=== PATIENT | male | born 1990 | race Caucasian/White ===

== ENCOUNTER 2020-05-13 18:01 | Inpatient (IN) | payer OTHER ==
[2020-05-13] VITALS (13 sets, daily range): BP systolic 128–165; BP diastolic 56–105
[~2020-05-13 18:01] MED LIST: KETOROLAC 30 MG/ML 1ML VIAL IV SCH
[2020-05-13] MEDS ORDERED: KETOROLAC 30 MG/ML 1ML VIAL IV ONE ×2 (18:15→23:00)
[2020-05-13 18:33] LABS: BASO % 0.6 % (0.0-1.0); EOS # 0.1 10^3/uL (0.0-0.5); EOS % 1.7 % (0.0-3.0); HEMATOCRIT 40.3 % (42.0-52.0); HEMOGLOBIN 13.1 g/dl (13.5-17.5); LYMPH # 2.1 10^3/uL (1.5-5.0); LYMPH % 29.6 % (24.0-44.0); MEAN CORPUSCULAR HEMOGLOBIN 30.8 pg (27.0-33.0); MEAN CORPUSCULAR HGB CONC 32.5 g/dl (32.0-36.5); MEAN CORPUSCULAR VOLUME 94.6 fl (80.0-96.0); MONO # 0.5 10^3/uL (0.0-0.8); MONO % 7.6 % (0.0-5.0); NEUTROPHILS # 4.2 10^3/uL (1.5-8.5); NEUTROPHILS % 60.2 % (36.0-66.0); PLATELET COUNT, AUTOMATED 235 10^3/uL (150-450); RED BLOOD COUNT 4.26 10^6/uL (4.30-6.10)
--- NOTE | 2020-05-13 18:45 | REPVR ---
PROCEDURE INFORMATION: Exam: XR Chest, 1 View Exam date and time: 05/13/2020 6:38 PM Age: 30 years old Clinical indication: Chest pain; Type not specified; Additional info: Cp TECHNIQUE: Imaging protocol: XR of the chest Views: 1 view. COMPARISON: No relevant prior studies available. FINDINGS: Lungs: Clear right lung. There is complete collapse of the left lung. Pleural space: No pleural effusion. Heart/Mediastinum: Large left pneumothorax with shift of the cardiomediastinal structures to the right. Normal sized heart. Bones/joints: No acute bone or joint abnormality. IMPRESSION: Left tension pneumothorax. Electronically signed by: Demario Haas On 05/13/2020 18:46:18 PM
[2020-05-13] MEDS ORDERED: flumazeniL 0.5 MG/5 ML VIAL As Ordered ONE (18:59)
[2020-05-13] MEDS ORDERED: MIDAZOLAM INJ 2MG/2ML VIAL (J2250 PER 1MG) As Ordered ONE ×2 (19:00→19:28)
[2020-05-13] MEDS ORDERED: LIDOCAINE 1% MDV 20ML VIAL As Ordered ONE (19:00)
[2020-05-13] MEDS ORDERED: KCL 20MEQ IN D5/NS 1000ML 1,000 ML IV SCH (19:09)
[2020-05-13 19:14] LABS: ALBUMIN 4.3 GM/DL (3.2-5.2); ALT/SGPT 58 U/L (12-78); BILIRUBIN,TOTAL 0.5 MG/DL (0.2-1.0); BLOOD UREA NITROGEN 13 MG/DL (7-18); CALCIUM LEVEL 9.7 MG/DL (8.5-10.1); CARBON DIOXIDE LEVEL 32 MEQ/L (21-32); CHLORIDE LEVEL 106 MEQ/L (98-107); CK-MB VALUE MASS 2.9 NG/ML (<3.6); CPK CREATINE PHOSPHOKINASE 3255 U/L (39-308); CREATININE FOR GFR 0.84 MG/DL (0.70-1.30); GLOMERULAR FILTRATION RATE > 60.0 (>60); GLUCOSE, FASTING 100 MG/DL (70-100); MB/CK RELATIVE INDEX 0.09 (< OR =4); POTASSIUM SERUM 4.8 MEQ/L (3.5-5.1); SODIUM LEVEL 138 MEQ/L (136-145); TOTAL PROTEIN 7.9 GM/DL (6.4-8.2); TROPONIN I < 0.02 NG/ML (< 0.10)
[2020-05-13] MEDS ORDERED: BISACODYL 10 MG SUPP PR PRN (19:15)
[2020-05-13] MEDS ORDERED: LEVALBUTEROL 1.25 MG/0.5 ML CONCENTRATE NEB NEB PRN (19:15)
[2020-05-13] MEDS ORDERED: ACETAMINOPHEN TAB 650MG DOSE (2X325MG) PO PRN (19:15)
[2020-05-13 19:26] LABS: ERYTHROCYTE SEDIMENTATION RATE 4 mm/hr (0-15)
[2020-05-13] MEDS ORDERED: KETOROLAC 30 MG/ML 1ML VIAL As Ordered ONE (19:47)
--- NOTE | 2020-05-13 19:58 | REPVR ---
PROCEDURE INFORMATION: Exam: XR Chest, 1 View Exam date and time: 05/13/2020 7:51 PM Age: 30 years old Clinical indication: Device placement; Chest tube; Additional info: Post chest tube TECHNIQUE: Imaging protocol: XR of the chest Views: 1 view. COMPARISON: CR Chest, 1 view 05/13/2020 6:33 PM FINDINGS: Tubes, catheters and devices: A left-sided chest tube has been placed since the previous examination. The tip of the tube is superimposed over the medial aspect of the left upper thorax. Lungs: There are linear markings scattered about the left lung consistent with atelectasis. The right lung is clear. Pleural space: There is been complete resolution of the left pneumothorax compared to the previous study. No pleural effusion. Heart/Mediastinum: The cardiomediastinal silhouette and pulmonary vasculature are within normal limits. Bones/joints: No acute bone or joint abnormality. IMPRESSION: 1. Resolution of left pneumothorax, status post placement of left chest tube. 2. Minimal linear markings within the left lung consistent with atelectasis . Electronically signed by: Demario Haas On 05/13/2020 19:58:59 PM
[2020-05-13] MEDS: LEVALBUTEROL 1.25 MG/0.5 ML CONCENTRATE NEB NEB SCH (21:10)
[2020-05-13] MEDS: DOCUSATE SODIUM 100 MG CAP PO SCH (22:05)
[2020-05-13] MEDS: PERCOCET 5MG/325MG TAB PO PRN (22:06)
[2020-05-13] MEDS: HEPARIN SOD (PORCINE) 5000UNITS/ML 1ML VIAL/SYRINGE SC SCH (22:06)
[2020-05-13] MEDS ORDERED: LIDOCAINE 1% MDV 20ML VIAL SC ONE (23:00)
[2020-05-13] MEDS ORDERED: MIDAZOLAM INJ 2MG/2ML VIAL (J2250 PER 1MG) IV SCH (23:00)
[2020-05-14] VITALS: BP 127/63
[2020-05-14] MEDS: KETOROLAC 30 MG/ML 1ML VIAL IV SCH ×5 (00:02→23:35)
[2020-05-14] MEDS: LEVALBUTEROL 1.25 MG/0.5 ML CONCENTRATE NEB NEB SCH ×4 (02:00→19:35)
[2020-05-14] MEDS: PERCOCET 5MG/325MG TAB PO PRN ×2 (02:57→08:23)
[2020-05-14 04:00] VITALS: BP 123/75
[2020-05-14 05:57] LABS: BASO % 0.3 % (0.0-1.0); EOS # 0.1 10^3/uL (0.0-0.5); EOS % 1.6 % (0.0-3.0); HEMATOCRIT 38.4 % (42.0-52.0); HEMOGLOBIN 12.3 g/dl (13.5-17.5); LYMPH # 1.9 10^3/uL (1.5-5.0); LYMPH % 25.2 % (24.0-44.0); MEAN CORPUSCULAR HEMOGLOBIN 30.6 pg (27.0-33.0); MEAN CORPUSCULAR VOLUME 95.5 fl (80.0-96.0); MONO # 0.7 10^3/uL (0.0-0.8); NEUTROPHILS # 4.7 10^3/uL (1.5-8.5); NEUTROPHILS % 63.6 % (36.0-66.0); PLATELET COUNT, AUTOMATED 204 10^3/uL (150-450); RED BLOOD COUNT 4.02 10^6/uL (4.30-6.10); WHITE BLOOD COUNT 7.3 10^3/uL (4.0-10.0)
[2020-05-14 06:26] LABS: BLOOD UREA NITROGEN 17 MG/DL (7-18); CALCIUM LEVEL 8.4 MG/DL (8.5-10.1); CARBON DIOXIDE LEVEL 29 MEQ/L (21-32); CHLORIDE LEVEL 108 MEQ/L (98-107); CREATININE FOR GFR 0.73 MG/DL (0.70-1.30); GLOMERULAR FILTRATION RATE > 60.0 (>60); GLUCOSE, FASTING 98 MG/DL (70-100); POTASSIUM SERUM 4.2 MEQ/L (3.5-5.1); SODIUM LEVEL 141 MEQ/L (136-145)
[2020-05-14 07:58] VITALS: BP 118/75
[2020-05-14] MEDS: DOCUSATE SODIUM 100 MG CAP PO SCH ×2 (08:17→20:25)
[2020-05-14] MEDS: HEPARIN SOD (PORCINE) 5000UNITS/ML 1ML VIAL/SYRINGE SC SCH ×2 (08:18→20:26)
[2020-05-14] MEDS: PANTOPRAZOLE 40MG TAB (PROTONIX) PO SCH (08:18)
[2020-05-14] MEDS: MOM 30ML SUSPENSION UDC PO SCH (08:19)
--- NOTE | 2020-05-14 09:32 | REPVR ---
PROCEDURE INFORMATION: Exam: CT Chest Without Contrast Exam date and time: 05/14/2020 8:56 AM Age: 30 years old Clinical indication: Condition or disease; Lung condition and disease; Pneumothorax; Spontaneous; Additional info: Left sided pneumothorax TECHNIQUE: Imaging protocol: Computed tomography of the chest without contrast. 3D rendering (Not supervised by radiologist): MIP and/or 3D reconstructed images were created by the technologist. Radiation optimization: All CT scans at this facility use at least one of these dose optimization techniques: automated exposure control; mA and/or kV adjustment per patient size (includes targeted exams where dose is matched to clinical indication); or iterative reconstruction. COMPARISON: CR Chest, 2 view PA, Lat 05/14/2020 7:20 AM FINDINGS: Tubes, catheters and devices: Left chest tube place with trace residual pneumothorax. Lungs: Atelectasis or scarring at the left base. Evidence of wedge resection along the medial right apex. Centrilobular and paraseptal emphysema. 6 mm pulmonary nodule in the right lower lobe . Pleural space: Unremarkable. No pneumothorax. No pleural effusion. Heart: Unremarkable. No cardiomegaly. No pericardial effusion. Aorta: Unremarkable. No aortic aneurysm. Lymph nodes: Unremarkable. No enlarged lymph nodes. Bones/joints: Unremarkable. No acute fracture. Soft tissues: Gas the left anterolateral chest wall. IMPRESSION: Left chest tube place with trace residual pneumothorax. Electronically signed by: Kurt Hernandez On 05/14/2020 09:32:50 AM
--- NOTE | 2020-05-14 09:33 | REPVR ---
PROCEDURE INFORMATION: Exam: XR Chest, 2 Views Exam date and time: 05/14/2020 6:00 AM Age: 30 years old Clinical indication: Dyspnea; Additional info: Pneumothorax TECHNIQUE: Imaging protocol: XR of the chest Views: 2 views. COMPARISON: CR PORTABLE CHEST X-RAY 05/13/2020 7:42 PM FINDINGS: Lungs: Unremarkable. No consolidation. Pleural space: Left chest tube in place with trace residual pneumothorax. Heart/Mediastinum: Unremarkable. No cardiomegaly. Bones/joints: Unremarkable. Soft tissues: Gas in the left lateral chest wall. IMPRESSION: Left chest tube in place with trace residual pneumothorax. Electronically signed by: Kurt Hernandez On 05/14/2020 09:34:04 AM
[2020-05-14] MEDS: NORCO, ANEXSIA 5/325MG TABLET (HYDROcodone/ACETAMINOPHEN) PO PRN ×3 (10:20→20:26)
--- NOTE | 2020-05-14 10:25 | REPVR ---
PROCEDURE INFORMATION: Exam: XR Chest, 1 View Exam date and time: 05/14/2020 10:04 AM Age: 30 years old Clinical indication: Device placement; Additional info: Tube reposition sp pneumothorax TECHNIQUE: Imaging protocol: XR of the chest Views: 1 view. COMPARISON: 1. CT Chest without contrast 05/14/2020 8:40 AM 2. CR - Chest, 2 view PA, Lat 05/14/2020 7:20:36 AM FINDINGS: Tubes, catheters and devices: Left-sided chest tube remains in place. Lungs: Lungs are well aerated. No consolidation. Pleural space: Small residual left apical pneumothorax which appears unchanged. No significant pleural effusions. Heart/Mediastinum: Cardiac size is normal and mediastinal contour stable. Bones/joints: Bones are stable. Soft tissues: There is persistent left chest wall subcutaneous emphysema. IMPRESSION: Stable small residual left apical pneumothorax with an indwelling chest tube. Electronically signed by: Jaime Vigil On 05/14/2020 10:25:25 AM
[2020-05-14 12:00] VITALS: BP 118/64
[2020-05-14 15:52] VITALS: BP 128/74
[2020-05-14 20:00] VITALS: BP 130/68
[2020-05-15] VITALS (7 sets, daily range): BP systolic 98–141; BP diastolic 55–84
[2020-05-15] MEDS: LEVALBUTEROL 1.25 MG/0.5 ML CONCENTRATE NEB NEB SCH ×4 (01:41→20:09)
[2020-05-15] MEDS: KETOROLAC 30 MG/ML 1ML VIAL IV SCH ×3 (05:12→17:06)
[2020-05-15 05:14] LABS: BASO % 0.3 % (0.0-1.0); EOS # 0.1 10^3/uL (0.0-0.5); EOS % 2.3 % (0.0-3.0); HEMATOCRIT 37.8 % (42.0-52.0); HEMOGLOBIN 12.1 g/dl (13.5-17.5); LYMPH # 2.3 10^3/uL (1.5-5.0); LYMPH % 37.3 % (24.0-44.0); MEAN CORPUSCULAR HEMOGLOBIN 30.5 pg (27.0-33.0); MEAN CORPUSCULAR VOLUME 95.2 fl (80.0-96.0); MONO # 0.5 10^3/uL (0.0-0.8); MONO % 8.2 % (0.0-5.0); NEUTROPHILS # 3.2 10^3/uL (1.5-8.5); NEUTROPHILS % 51.7 % (36.0-66.0); PLATELET COUNT, AUTOMATED 173 10^3/uL (150-450); RED BLOOD COUNT 3.97 10^6/uL (4.30-6.10); WHITE BLOOD COUNT 6.2 10^3/uL (4.0-10.0)
[2020-05-15 06:27] LABS: BLOOD UREA NITROGEN 12 MG/DL (7-18); CALCIUM LEVEL 8.8 MG/DL (8.5-10.1); CARBON DIOXIDE LEVEL 29 MEQ/L (21-32); CHLORIDE LEVEL 106 MEQ/L (98-107); CREATININE FOR GFR 0.72 MG/DL (0.70-1.30); GLOMERULAR FILTRATION RATE > 60.0 (>60); GLUCOSE, FASTING 92 MG/DL (70-100); POTASSIUM SERUM 4.1 MEQ/L (3.5-5.1); SODIUM LEVEL 141 MEQ/L (136-145)
[2020-05-15] MEDS: MOM 30ML SUSPENSION UDC PO SCH (08:19)
[2020-05-15] MEDS: PANTOPRAZOLE 40MG TAB (PROTONIX) PO SCH (08:19)
[2020-05-15] MEDS: DOCUSATE SODIUM 100 MG CAP PO SCH ×2 (08:19→20:37)
[2020-05-15] MEDS: NORCO, ANEXSIA 5/325MG TABLET (HYDROcodone/ACETAMINOPHEN) PO PRN ×2 (08:21→17:05)
[2020-05-15] MEDS ORDERED: SLF 3 ML SYR IV PRN (10:45)
[2020-05-15] MEDS: HEPARIN SOD (PORCINE) 5000UNITS/ML 1ML VIAL/SYRINGE SC SCH ×2 (11:06→20:37)
[2020-05-15] MEDS: SLF 3 ML SYR IV SCH ×2 (11:07→22:47)
[2020-05-16] VITALS: BP 137/76
[2020-05-16] MEDS: KETOROLAC 30 MG/ML 1ML VIAL IV SCH ×4 (00:28→18:05)
[2020-05-16] MEDS: NORCO, ANEXSIA 5/325MG TABLET (HYDROcodone/ACETAMINOPHEN) PO PRN ×3 (00:29→11:30)
[2020-05-16] MEDS: LEVALBUTEROL 1.25 MG/0.5 ML CONCENTRATE NEB NEB SCH ×4 (01:39→19:46)
[2020-05-16 04:00] VITALS: BP 134/77
[2020-05-16] MEDS: SLF 3 ML SYR IV SCH ×3 (06:06→21:11)
[2020-05-16 06:18] LABS: BASO % 0.3 % (0.0-1.0); EOS # 0.2 10^3/uL (0.0-0.5); HEMATOCRIT 37.8 % (42.0-52.0); LYMPH # 1.8 10^3/uL (1.5-5.0); LYMPH % 29.8 % (24.0-44.0); MEAN CORPUSCULAR HEMOGLOBIN 30.8 pg (27.0-33.0); MEAN CORPUSCULAR HGB CONC 31.7 g/dl (32.0-36.5); MEAN CORPUSCULAR VOLUME 96.9 fl (80.0-96.0); MONO # 0.6 10^3/uL (0.0-0.8); NEUTROPHILS # 3.4 10^3/uL (1.5-8.5); NEUTROPHILS % 56.6 % (36.0-66.0); PLATELET COUNT, AUTOMATED 182 10^3/uL (150-450); WHITE BLOOD COUNT 6.1 10^3/uL (4.0-10.0)
[2020-05-16 06:34] LABS: BLOOD UREA NITROGEN 12 MG/DL (7-18); CALCIUM LEVEL 8.6 MG/DL (8.5-10.1); CARBON DIOXIDE LEVEL 31 MEQ/L (21-32); CHLORIDE LEVEL 106 MEQ/L (98-107); CREATININE FOR GFR 0.77 MG/DL (0.70-1.30); GLOMERULAR FILTRATION RATE > 60.0 (>60); GLUCOSE, FASTING 85 MG/DL (70-100); POTASSIUM SERUM 4.3 MEQ/L (3.5-5.1); SODIUM LEVEL 143 MEQ/L (136-145)
[2020-05-16] MEDS: HEPARIN SOD (PORCINE) 5000UNITS/ML 1ML VIAL/SYRINGE SC SCH ×2 (07:57→21:11)
[2020-05-16] MEDS: MOM 30ML SUSPENSION UDC PO SCH (07:57)
[2020-05-16] MEDS: DOCUSATE SODIUM 100 MG CAP PO SCH ×2 (07:57→21:09)
[2020-05-16] MEDS: PANTOPRAZOLE 40MG TAB (PROTONIX) PO SCH (07:57)
[2020-05-16 08:00] VITALS: BP 113/60
[2020-05-16 12:00] VITALS: BP 135/72
[2020-05-16] MEDS: PERCOCET 5MG/325MG TAB PO PRN ×2 (15:48→21:10)
[2020-05-16 16:00] VITALS: BP 129/77
[2020-05-16 20:00] VITALS: BP 136/72
[2020-05-17] VITALS: BP 120/72
[2020-05-17] MEDS: KETOROLAC 30 MG/ML 1ML VIAL IV SCH ×4 (00:53→17:18)
[2020-05-17] MEDS: LEVALBUTEROL 1.25 MG/0.5 ML CONCENTRATE NEB NEB SCH ×4 (01:50→19:46)
[2020-05-17 04:00] VITALS: BP 116/63
[2020-05-17 06:20] LABS: BASO % 0.4 % (0.0-1.0); EOS # 0.1 10^3/uL (0.0-0.5); EOS % 2.1 % (0.0-3.0); HEMATOCRIT 35.6 % (42.0-52.0); HEMOGLOBIN 11.4 g/dl (13.5-17.5); LYMPH # 1.7 10^3/uL (1.5-5.0); LYMPH % 32.5 % (24.0-44.0); MEAN CORPUSCULAR HEMOGLOBIN 30.9 pg (27.0-33.0); MEAN CORPUSCULAR VOLUME 96.5 fl (80.0-96.0); MONO # 0.5 10^3/uL (0.0-0.8); MONO % 8.4 % (0.0-5.0); NEUTROPHILS % 56.4 % (36.0-66.0); PLATELET COUNT, AUTOMATED 179 10^3/uL (150-450); RED BLOOD COUNT 3.69 10^6/uL (4.30-6.10); WHITE BLOOD COUNT 5.4 10^3/uL (4.0-10.0)
[2020-05-17] MEDS: PERCOCET 5MG/325MG TAB PO PRN ×3 (06:26→20:47)
[2020-05-17] MEDS: SLF 3 ML SYR IV SCH ×3 (06:27→21:17)
[2020-05-17 06:44] LABS: BLOOD UREA NITROGEN 9 MG/DL (7-18); CALCIUM LEVEL 8.8 MG/DL (8.5-10.1); CARBON DIOXIDE LEVEL 30 MEQ/L (21-32); CHLORIDE LEVEL 105 MEQ/L (98-107); CREATININE FOR GFR 0.79 MG/DL (0.70-1.30); GLOMERULAR FILTRATION RATE > 60.0 (>60); GLUCOSE, FASTING 96 MG/DL (70-100); POTASSIUM SERUM 4.3 MEQ/L (3.5-5.1); SODIUM LEVEL 141 MEQ/L (136-145)
[2020-05-17] MEDS: DOCUSATE SODIUM 100 MG CAP PO SCH ×2 (09:58→20:46)
[2020-05-17] MEDS: PANTOPRAZOLE 40MG TAB (PROTONIX) PO SCH (09:58)
[2020-05-17] MEDS: HEPARIN SOD (PORCINE) 5000UNITS/ML 1ML VIAL/SYRINGE SC SCH ×2 (09:59→20:47)
[2020-05-17] MEDS: MOM 30ML SUSPENSION UDC PO SCH (09:59)
[2020-05-17 12:00] VITALS: BP_SYST 140; BP_DIAS 4; BP_DIAS 74
[2020-05-17 16:00] VITALS: BP 156/82
[2020-05-17 20:00] VITALS: BP 132/70
[2020-05-18] VITALS: BP 129/86
[2020-05-18] MEDS: KETOROLAC 30 MG/ML 1ML VIAL IV SCH ×4 (00:58→17:20)
[2020-05-18] MEDS: LEVALBUTEROL 1.25 MG/0.5 ML CONCENTRATE NEB NEB SCH ×4 (01:36→19:30)
[2020-05-18 04:00] VITALS: BP 119/59
[2020-05-18] MEDS: SLF 3 ML SYR IV SCH ×3 (06:12→20:50)
[2020-05-18] MEDS ORDERED: STERILE TALC POWDER 3GM VIAL As Ordered ONE (07:19)
[2020-05-18] MEDS ORDERED: BUPIVACAINE HCL 0.5% 10ML VIAL As Ordered ONE (07:19)
[2020-05-18] MEDS ORDERED: CETACAINE SPRAY 5GM As Ordered ONE (07:19)
[2020-05-18] MEDS ORDERED: BUPIVACAINE LIPOSOME/PF 1.3% 20ML VIAL (13.3MG/ML)(EXPAREL)(C9290 PER1MG) As Ordered ONE (07:20)
[2020-05-18] MEDS ORDERED: TALCAIR POWDER BLOWER (CAN ONLY BE USED WITH 3GM TALC VIAL) XX ONE (07:21)
[2020-05-18] MEDS ORDERED: LIDOCAINE 2% 100MG/5ML SDV (FOR ANES.) As Ordered ONE (07:37)
[2020-05-18] MEDS ORDERED: ROCURONIUM BROMIDE 50 MG/5 ML VIAL As Ordered ONE ×2 (07:37→09:26)
[2020-05-18] MEDS ORDERED: MIDAZOLAM INJ 2MG/2ML VIAL (J2250 PER 1MG) As Ordered ONE ×2 (07:37→07:38)
[2020-05-18] MEDS ORDERED: dexameTHASONE 4 MG/ML 1ML VIAL (J1100 PER 1MG) As Ordered ONE (07:37)
[2020-05-18] MEDS ORDERED: fentaNYL 250 MCG/5 ML INJECTION (J3010) As Ordered ONE (07:37)
[2020-05-18] MEDS ORDERED: propofoL 200 MG/20 ML VIAL As Ordered ONE ×2 (07:37→07:40)
[2020-05-18] MEDS ORDERED: ONDANSETRON 4MG/2ML VIAL As Ordered ONE (07:37)
[2020-05-18] MEDS ORDERED: fentaNYL 100 MCG/2 ML INJECTION (J3010) As Ordered ONE ×2 (07:38→11:19)
[2020-05-18 08:00] VITALS: BP 123/64
[2020-05-18] MEDS: MIDAZOLAM INJ 2MG/2ML VIAL (J2250 PER 1MG) IV SCH ×2 (08:07→08:09)
[2020-05-18] MEDS: fentaNYL 100 MCG/2 ML INJECTION (J3010) IV SCH ×2 (08:07→08:24)
[2020-05-18] MEDS ORDERED: MUPIROCIN 2% OINT 22 GM TUBE As Ordered ONE (08:39)
[2020-05-18] MEDS ORDERED: ceFAZolin 1GM VIAL (J0690 PER 500MG) As Ordered ONE (08:40)
[2020-05-18] MEDS ORDERED: ONDANSETRON 4MG/2ML VIAL IV PRN ×2 (09:00→11:30)
[2020-05-18] MEDS ORDERED: NALOXONE INJ 0.4MG/1ML VIAL (J2310 PER 1MG) IV PRN (09:00)
[2020-05-18] MEDS ORDERED: EPIDURAL/PCA KEYS XX PRN (09:00)
[2020-05-18] MEDS ORDERED: METOCLOPRAMIDE INJ 10MG/2ML VIAL (J2765 PER 1) IV PRN (09:00)
[2020-05-18] MEDS ORDERED: WALLBOXKEY XX PRN (09:00)
[2020-05-18] MEDS ORDERED: BUPIVACAINE HCL 0.25% 30ML VIAL As Ordered ONE (09:11)
[2020-05-18] MEDS ORDERED: GLYCOPYRROLATE INJ 0.2 MG/ML 2 ML VIAL As Ordered ONE (09:14)
[2020-05-18] MEDS ORDERED: ACETAMINOPHEN 1000MG 100ML IV BTL (OFIRMEV) (J0131 PER 10MG) As Ordered ONE (09:33)
[2020-05-18] MEDS ORDERED: SUGAMMADEX SODIUM 500 MG/5 ML VIAL (BRIDION) As Ordered ONE (09:33)
[2020-05-18] MEDS ORDERED: PHENYLephrine HCL 500 MCG/5 ML (100MCG/ML) SYRINGE (J2370) As Ordered ONE (09:39)
[2020-05-18] MEDS ORDERED: ePHEDrine SULFATE 25 MG/5 ML(5MG/ML) SYRINGE As Ordered ONE (09:39)
[2020-05-18] MEDS ORDERED: FENTANYL 2MCG/ML BUPIVACAINE 0.0625% NACL 250ML IV BAG As Ordered ONE (10:39)
[2020-05-18] MEDS: FENTANYL/BUPIVACAINE/NACL BAG 250 ML EPIDURAL SCH (11:04)
[2020-05-18] MEDS ORDERED: KCL 20MEQ IN D5/0.9%NACL 1000 ML As Ordered ONE (11:11)
[2020-05-18] MEDS: KCL 20MEQ IN D5/NS 1000ML 1,000 ML IV SCH ×2 (11:11→23:58)
[2020-05-18 11:15] LABS: ABG PARTIAL PRESSURE CO2 57.2 mmHg (35.0-45.0); ABG pH (ARTERIAL) 7.338 UNITS (7.350-7.450)
[2020-05-18 11:16] LABS: ABG BASE EXCESS 2.9 (-2.0-2.0); ABG O2 SATURATION 98.5 % (95.0-99.0); ABG PARTIAL PRESSURE O2 134.2 mmHg (75.0-100.0); ABG STANDARD HCO3 27.1 MEQ/L (22.0-26.0); ABG TOTAL CO2 31.8 MEQ/L (22.0-29.0)
[2020-05-18] MEDS: fentaNYL 100 MCG/2 ML INJECTION (J3010) IV PRN ×2 (11:19→11:28)
[2020-05-18 11:25] LABS: BASO % 0.1 % (0.0-1.0); EOS # 0.1 10^3/uL (0.0-0.5); EOS % 0.7 % (0.0-3.0); HEMATOCRIT 39.6 % (42.0-52.0); HEMOGLOBIN 12.7 g/dl (13.5-17.5); LYMPH # 0.7 10^3/uL (1.5-5.0); LYMPH % 8.9 % (24.0-44.0); MEAN CORPUSCULAR HEMOGLOBIN 30.7 pg (27.0-33.0); MEAN CORPUSCULAR HGB CONC 32.1 g/dl (32.0-36.5); MEAN CORPUSCULAR VOLUME 95.7 fl (80.0-96.0); MONO # 0.2 10^3/uL (0.0-0.8); MONO % 2.9 % (0.0-5.0); NEUTROPHILS # 6.6 10^3/uL (1.5-8.5); PLATELET COUNT, AUTOMATED 198 10^3/uL (150-450); RED BLOOD COUNT 4.14 10^6/uL (4.30-6.10); WHITE BLOOD COUNT 7.6 10^3/uL (4.0-10.0)
[2020-05-18] MEDS ORDERED: LR 1,000 ML IV SCH (11:30)
[2020-05-18] MEDS ORDERED: PERCOCET 5MG/325MG TAB PO PRN (11:30)
[2020-05-18] MEDS ORDERED: KETOROLAC 30 MG/ML 1ML VIAL As Ordered ONE (12:03)
[2020-05-18] MEDS ORDERED: PERCOCET 5MG/325MG TAB As Ordered ONE (12:03)
[2020-05-18 12:06] LABS: BLOOD UREA NITROGEN 11 MG/DL (7-18); CALCIUM LEVEL 8.8 MG/DL (8.5-10.1); CARBON DIOXIDE LEVEL 29 MEQ/L (21-32); CHLORIDE LEVEL 109 MEQ/L (98-107); GLOMERULAR FILTRATION RATE > 60.0 (>60); GLUCOSE, FASTING 101 MG/DL (70-100); POTASSIUM SERUM 4.9 MEQ/L (3.5-5.1); SODIUM LEVEL 142 MEQ/L (136-145)
[2020-05-18 16:00] VITALS: BP 102/54
[2020-05-18] MEDS: DOCUSATE SODIUM 100 MG CAP PO SCH ×2 (16:15→20:49)
[2020-05-18] MEDS: MOM 30ML SUSPENSION UDC PO SCH (16:15)
[2020-05-18] MEDS: PANTOPRAZOLE 40MG TAB (PROTONIX) PO SCH (16:16)
[2020-05-18] MEDS: HEPARIN SOD (PORCINE) 5000UNITS/ML 1ML VIAL/SYRINGE SC SCH ×2 (16:16→20:49)
[2020-05-18] MEDS: diphenhydrAMINE 50MG/ML VIAL (J1200) IV PRN (17:20)
[2020-05-18 20:00] VITALS: BP 140/62
[2020-05-19] VITALS: BP 120/68
[2020-05-19] MEDS: LEVALBUTEROL 1.25 MG/0.5 ML CONCENTRATE NEB NEB SCH ×4 (00:05→20:16)
[2020-05-19] MEDS: KCL 20MEQ IN D5/NS 1000ML 1,000 ML IV SCH (00:22)
[2020-05-19 04:00] VITALS: BP 120/56
[2020-05-19] MEDS: diphenhydrAMINE 50MG/ML VIAL (J1200) IV PRN (04:23)
[2020-05-19 04:25] LABS: BASO % 0.2 % (0.0-1.0); EOS # 0.1 10^3/uL (0.0-0.5); EOS % 1.1 % (0.0-3.0); HEMATOCRIT 35.9 % (42.0-52.0); HEMOGLOBIN 11.8 g/dl (13.5-17.5); LYMPH # 1.8 10^3/uL (1.5-5.0); LYMPH % 17.6 % (24.0-44.0); MEAN CORPUSCULAR HEMOGLOBIN 31.2 pg (27.0-33.0); MEAN CORPUSCULAR HGB CONC 32.9 g/dl (32.0-36.5); MONO # 0.9 10^3/uL (0.0-0.8); MONO % 8.7 % (0.0-5.0); NEUTROPHILS # 7.5 10^3/uL (1.5-8.5); NEUTROPHILS % 72.1 % (36.0-66.0); PLATELET COUNT, AUTOMATED 195 10^3/uL (150-450); RED BLOOD COUNT 3.78 10^6/uL (4.30-6.10); WHITE BLOOD COUNT 10.4 10^3/uL (4.0-10.0)
[2020-05-19 04:45] LABS: BLOOD UREA NITROGEN 10 MG/DL (7-18); CALCIUM LEVEL 8.6 MG/DL (8.5-10.1); CARBON DIOXIDE LEVEL 28 MEQ/L (21-32); CHLORIDE LEVEL 107 MEQ/L (98-107); CREATININE FOR GFR 0.77 MG/DL (0.70-1.30); GLOMERULAR FILTRATION RATE > 60.0 (>60); GLUCOSE, FASTING 94 MG/DL (70-100); POTASSIUM SERUM 4.4 MEQ/L (3.5-5.1); SODIUM LEVEL 141 MEQ/L (136-145)
[2020-05-19] MEDS: SLF 3 ML SYR IV SCH ×3 (05:21→20:44)
[2020-05-19 05:52] LABS: ABG HCO3 24.1 MEQ/L (22.0-26.0); ABG PARTIAL PRESSURE CO2 41.5 mmHg (35.0-45.0); ABG PARTIAL PRESSURE O2 107.5 mmHg (75.0-100.0); ABG TOTAL CO2 25.3 MEQ/L (22.0-29.0); ABG pH (ARTERIAL) 7.381 UNITS (7.350-7.450)
[2020-05-19 05:53] LABS: ABG STANDARD HCO3 23.6 MEQ/L (22.0-26.0)
[2020-05-19 08:00] VITALS: BP 106/51
[2020-05-19] MEDS: HEPARIN SOD (PORCINE) 5000UNITS/ML 1ML VIAL/SYRINGE SC SCH ×2 (08:25→20:43)
[2020-05-19] MEDS: PANTOPRAZOLE 40MG TAB (PROTONIX) PO SCH (08:25)
[2020-05-19] MEDS: MOM 30ML SUSPENSION UDC PO SCH (08:25)
[2020-05-19] MEDS: DOCUSATE SODIUM 100 MG CAP PO SCH ×2 (08:25→20:43)
[2020-05-19] MEDS: FENTANYL/BUPIVACAINE/NACL BAG 250 ML EPIDURAL SCH (08:26)
[2020-05-19] MEDS: BUPIVACAINE/NACL BAG 250 ML EPIDURAL SCH (11:59)
[2020-05-19 12:00] VITALS: BP 110/69
[2020-05-19 16:00] VITALS: BP_SYST 127; BP_SYST 139; BP_DIAS 61; BP_DIAS 66
[2020-05-19] MEDS: PERCOCET 5MG/325MG TAB PO PRN ×2 (16:22→20:56)
[2020-05-19 20:00] VITALS: BP 134/61
[2020-05-20] VITALS (11 sets, daily range): BP systolic 95–130; BP diastolic 50–74
[2020-05-20] MEDS: LEVALBUTEROL 1.25 MG/0.5 ML CONCENTRATE NEB NEB SCH ×4 (01:41→20:00)
[2020-05-20] MEDS: PERCOCET 5MG/325MG TAB PO PRN ×2 (02:05→06:49)
[2020-05-20] MEDS: NORCO, ANEXSIA 5/325MG TABLET (HYDROcodone/ACETAMINOPHEN) PO PRN ×2 (02:11→06:50)
[2020-05-20] MEDS: SLF 3 ML SYR IV SCH ×3 (05:40→21:16)
[2020-05-20 05:58] LABS: BASO % 0.4 % (0.0-1.0); EOS # 0.1 10^3/uL (0.0-0.5); EOS % 1.6 % (0.0-3.0); HEMATOCRIT 34.6 % (42.0-52.0); HEMOGLOBIN 11.1 g/dl (13.5-17.5); LYMPH # 1.5 10^3/uL (1.5-5.0); LYMPH % 18.5 % (24.0-44.0); MEAN CORPUSCULAR HEMOGLOBIN 31.2 pg (27.0-33.0); MEAN CORPUSCULAR HGB CONC 32.1 g/dl (32.0-36.5); MEAN CORPUSCULAR VOLUME 97.2 fl (80.0-96.0); MONO % 12.2 % (0.0-5.0); NEUTROPHILS # 5.3 10^3/uL (1.5-8.5); PLATELET COUNT, AUTOMATED 178 10^3/uL (150-450); RED BLOOD COUNT 3.56 10^6/uL (4.30-6.10); WHITE BLOOD COUNT 7.9 10^3/uL (4.0-10.0)
[2020-05-20 06:21] LABS: BLOOD UREA NITROGEN 14 MG/DL (7-18); CALCIUM LEVEL 8.7 MG/DL (8.5-10.1); CARBON DIOXIDE LEVEL 32 MEQ/L (21-32); CHLORIDE LEVEL 104 MEQ/L (98-107); CREATININE FOR GFR 0.74 MG/DL (0.70-1.30); GLOMERULAR FILTRATION RATE > 60.0 (>60); GLUCOSE, FASTING 95 MG/DL (70-100); POTASSIUM SERUM 4.4 MEQ/L (3.5-5.1); SODIUM LEVEL 140 MEQ/L (136-145)
[2020-05-20] MEDS: BUPIVACAINE/NACL BAG 250 ML EPIDURAL SCH (09:25)
[2020-05-20] MEDS: MOM 30ML SUSPENSION UDC PO SCH (09:44)
[2020-05-20] MEDS: DOCUSATE SODIUM 100 MG CAP PO SCH ×2 (09:44→21:15)
[2020-05-20] MEDS: HEPARIN SOD (PORCINE) 5000UNITS/ML 1ML VIAL/SYRINGE SC SCH ×2 (09:45→21:15)
[2020-05-20] MEDS: PANTOPRAZOLE 40MG TAB (PROTONIX) PO SCH (09:49)
[2020-05-20] MEDS: KETOROLAC 30 MG/ML 1ML VIAL IV SCH ×2 (11:46→19:04)
[2020-05-20] MEDS ORDERED: fentaNYL 100 MCG/2 ML INJECTION (J3010) As Ordered ONE (12:04)
[2020-05-20] MEDS ORDERED: MIDAZOLAM INJ 2MG/2ML VIAL (J2250 PER 1MG) As Ordered ONE (12:04)
[2020-05-20] MEDS ORDERED: MORPHINE 1MG/ML IN 0.9% NACL 100ML IV BAG IV PRN (14:30)
[2020-05-20] MEDS ORDERED: EPIDURAL/PCA KEYS XX PRN (14:30)
[2020-05-20] MEDS: NS 1,000 ML IV SCH (16:26)
[2020-05-21] VITALS: BP 105/58
[2020-05-21] MEDS: KETOROLAC 30 MG/ML 1ML VIAL IV SCH ×4 (00:54→17:36)
[2020-05-21] MEDS: LEVALBUTEROL 1.25 MG/0.5 ML CONCENTRATE NEB NEB SCH ×4 (01:21→19:45)
[2020-05-21 04:00] VITALS: BP 111/62
[2020-05-21] MEDS: BUPIVACAINE/NACL BAG 250 ML EPIDURAL SCH (05:07)
[2020-05-21] MEDS: SLF 3 ML SYR IV SCH ×3 (05:34→20:38)
[2020-05-21 06:42] LABS: BASO % 0.3 % (0.0-1.0); EOS # 0.2 10^3/uL (0.0-0.5); EOS % 2.9 % (0.0-3.0); HEMATOCRIT 34.2 % (42.0-52.0); HEMOGLOBIN 11.1 g/dl (13.5-17.5); LYMPH # 1.5 10^3/uL (1.5-5.0); LYMPH % 24.3 % (24.0-44.0); MEAN CORPUSCULAR HEMOGLOBIN 30.9 pg (27.0-33.0); MEAN CORPUSCULAR HGB CONC 32.5 g/dl (32.0-36.5); MEAN CORPUSCULAR VOLUME 95.3 fl (80.0-96.0); MONO # 0.8 10^3/uL (0.0-0.8); MONO % 12.9 % (0.0-5.0); NEUTROPHILS # 3.6 10^3/uL (1.5-8.5); NEUTROPHILS % 59.3 % (36.0-66.0); PLATELET COUNT, AUTOMATED 186 10^3/uL (150-450); RED BLOOD COUNT 3.59 10^6/uL (4.30-6.10); WHITE BLOOD COUNT 6.1 10^3/uL (4.0-10.0)
[2020-05-21 07:05] LABS: BLOOD UREA NITROGEN 13 MG/DL (7-18); CARBON DIOXIDE LEVEL 31 MEQ/L (21-32); CHLORIDE LEVEL 103 MEQ/L (98-107); CREATININE FOR GFR 0.62 MG/DL (0.70-1.30); GLOMERULAR FILTRATION RATE > 60.0 (>60); GLUCOSE, FASTING 92 MG/DL (70-100); SODIUM LEVEL 138 MEQ/L (136-145)
[2020-05-21 08:00] VITALS: BP 103/52
[2020-05-21] MEDS: DOCUSATE SODIUM 100 MG CAP PO SCH ×2 (08:36→20:38)
[2020-05-21] MEDS: PANTOPRAZOLE 40MG TAB (PROTONIX) PO SCH (08:36)
[2020-05-21] MEDS: MOM 30ML SUSPENSION UDC PO SCH (08:37)
[2020-05-21] MEDS: HEPARIN SOD (PORCINE) 5000UNITS/ML 1ML VIAL/SYRINGE SC SCH ×2 (08:37→20:39)
[2020-05-21] MEDS: ONDANSETRON 4MG/2ML VIAL IV PRN ×2 (08:37→17:36)
[2020-05-21 11:58] VITALS: BP 119/57
[2020-05-21] MEDS ORDERED: FUROSEMIDE 40MG/4ML VIAL (J1940) IV ONE (12:00)
[2020-05-21] MEDS: NS 1,000 ML IV SCH (14:45)
[2020-05-21 16:00] VITALS: BP 120/71
[2020-05-21 20:00] VITALS: BP 130/76
[2020-05-22] VITALS: BP 108/57
[2020-05-22] MEDS: KETOROLAC 30 MG/ML 1ML VIAL IV SCH ×4 (00:06→17:23)
[2020-05-22] MEDS: LEVALBUTEROL 1.25 MG/0.5 ML CONCENTRATE NEB NEB SCH ×4 (02:00→20:01)
[2020-05-22 04:00] VITALS: BP 111/52
[2020-05-22] MEDS: SLF 3 ML SYR IV SCH ×3 (05:20→21:22)
[2020-05-22 06:15] LABS: BASO % 0.4 % (0.0-1.0); EOS # 0.2 10^3/uL (0.0-0.5); EOS % 3.3 % (0.0-3.0); HEMATOCRIT 34.4 % (42.0-52.0); HEMOGLOBIN 11.1 g/dl (13.5-17.5); LYMPH # 1.9 10^3/uL (1.5-5.0); LYMPH % 34.8 % (24.0-44.0); MEAN CORPUSCULAR HEMOGLOBIN 30.6 pg (27.0-33.0); MEAN CORPUSCULAR HGB CONC 32.3 g/dl (32.0-36.5); MEAN CORPUSCULAR VOLUME 94.8 fl (80.0-96.0); MONO # 0.7 10^3/uL (0.0-0.8); MONO % 12.1 % (0.0-5.0); NEUTROPHILS # 2.7 10^3/uL (1.5-8.5); PLATELET COUNT, AUTOMATED 209 10^3/uL (150-450); RED BLOOD COUNT 3.63 10^6/uL (4.30-6.10); WHITE BLOOD COUNT 5.5 10^3/uL (4.0-10.0)
[2020-05-22 06:39] LABS: BLOOD UREA NITROGEN 12 MG/DL (7-18); CALCIUM LEVEL 8.9 MG/DL (8.5-10.1); CARBON DIOXIDE LEVEL 33 MEQ/L (21-32); CHLORIDE LEVEL 103 MEQ/L (98-107); CREATININE FOR GFR 0.76 MG/DL (0.70-1.30); GLOMERULAR FILTRATION RATE > 60.0 (>60); GLUCOSE, FASTING 89 MG/DL (70-100); POTASSIUM SERUM 4.4 MEQ/L (3.5-5.1); SODIUM LEVEL 141 MEQ/L (136-145)
[2020-05-22 08:00] VITALS: BP 121/70
[2020-05-22] MEDS: MOM 30ML SUSPENSION UDC PO SCH (08:50)
[2020-05-22] MEDS: HEPARIN SOD (PORCINE) 5000UNITS/ML 1ML VIAL/SYRINGE SC SCH ×2 (08:50→21:21)
[2020-05-22] MEDS: PANTOPRAZOLE 40MG TAB (PROTONIX) PO SCH (08:50)
[2020-05-22] MEDS: DOCUSATE SODIUM 100 MG CAP PO SCH ×2 (08:50→21:21)
[2020-05-22] MEDS: BUPIVACAINE/NACL BAG 250 ML EPIDURAL SCH (09:22)
[2020-05-22 11:53] VITALS: BP 140/75
[2020-05-22] MEDS ORDERED: FUROSEMIDE 40MG/4ML VIAL (J1940) IV ONE (13:00)
[2020-05-22] MEDS: NS 1,000 ML IV SCH (14:45)
[2020-05-22] MEDS: PERCOCET 5MG/325MG TAB PO PRN (15:31)
[2020-05-22 16:00] VITALS: BP 128/79
[2020-05-22 20:00] VITALS: BP 128/82
[2020-05-22] MEDS: NORCO, ANEXSIA 5/325MG TABLET (HYDROcodone/ACETAMINOPHEN) PO PRN (21:22)
[2020-05-23] VITALS: BP 100/54
[2020-05-23] MEDS: KETOROLAC 30 MG/ML 1ML VIAL IV SCH ×3 (00:59→11:42)
[2020-05-23] MEDS: LEVALBUTEROL 1.25 MG/0.5 ML CONCENTRATE NEB NEB SCH ×3 (02:00→14:00)
[2020-05-23 04:00] VITALS: BP 116/57
[2020-05-23 04:46] LABS: BASO % 0.4 % (0.0-1.0); EOS # 0.2 10^3/uL (0.0-0.5); EOS % 4.1 % (0.0-3.0); HEMATOCRIT 34.5 % (42.0-52.0); HEMOGLOBIN 11.2 g/dl (13.5-17.5); LYMPH # 1.6 10^3/uL (1.5-5.0); MEAN CORPUSCULAR HEMOGLOBIN 30.5 pg (27.0-33.0); MEAN CORPUSCULAR HGB CONC 32.5 g/dl (32.0-36.5); MONO # 0.7 10^3/uL (0.0-0.8); MONO % 12.8 % (0.0-5.0); NEUTROPHILS # 2.6 10^3/uL (1.5-8.5); NEUTROPHILS % 51.3 % (36.0-66.0); PLATELET COUNT, AUTOMATED 237 10^3/uL (150-450); RED BLOOD COUNT 3.67 10^6/uL (4.30-6.10); WHITE BLOOD COUNT 5.1 10^3/uL (4.0-10.0)
[2020-05-23 05:18] LABS: BLOOD UREA NITROGEN 16 MG/DL (7-18); CARBON DIOXIDE LEVEL 32 MEQ/L (21-32); CHLORIDE LEVEL 104 MEQ/L (98-107); CREATININE FOR GFR 0.76 MG/DL (0.70-1.30); GLOMERULAR FILTRATION RATE > 60.0 (>60); GLUCOSE, FASTING 95 MG/DL (70-100); POTASSIUM SERUM 4.3 MEQ/L (3.5-5.1); SODIUM LEVEL 140 MEQ/L (136-145)
[2020-05-23] MEDS: SLF 3 ML SYR IV SCH ×2 (06:12→13:37)
[2020-05-23 08:00] VITALS: BP 114/76
[2020-05-23] MEDS: HEPARIN SOD (PORCINE) 5000UNITS/ML 1ML VIAL/SYRINGE SC SCH (09:56)
[2020-05-23] MEDS: DOCUSATE SODIUM 100 MG CAP PO SCH (09:57)
[2020-05-23] MEDS: MOM 30ML SUSPENSION UDC PO SCH (09:57)
[2020-05-23] MEDS: PANTOPRAZOLE 40MG TAB (PROTONIX) PO SCH (09:57)
[2020-05-23] MEDS: PERCOCET 5MG/325MG TAB PO PRN (10:09)
[2020-05-23] MEDS ORDERED: PERCOCET PO (11:25)
[2020-05-23 12:00] VITALS: BP 138/87
--- NOTE | 2020-05-25 14:16 | REP ---
PORTABLE CHEST X-RAY CLINICAL: Follow-up pneumothorax. COMPARISON: 05/17/2020. FINDINGS: Current examination now demonstrates two left-sided chest tubes extending toward the left apex without obvious pneumothorax. A moderate amount of subcutaneous emphysema along the left lateral chest wall is again noted. The mediastinum and cardiac silhouette are normal. Subtle area of atelectasis along the medial left apex cannot be excluded. The remainder of the lung nur are well-aerated and clear. No effusion. Skeletal structures appear intact. IMPRESSION: 1. Current examination now demonstrates two left-sided chest tubes without significant residual pneumothorax. 2. Subcutaneous emphysema along the left lateral chest wall and possible forming area of atelectasis along the medial left apex. MTDD
--- NOTE | 2020-05-25 14:20 | REP ---
CHEST X-RAY CLINICAL: Follow-up pneumothorax. TECHNIQUE: PA and lateral. COMPARISON: 05/18/2020. FINDINGS: Two left-sided chest tubes are again identified in stable position. Small amount of subcutaneous emphysema along the left lateral chest wall is again noted and may be decreased from prior examination. No definite residual left-sided pneumothorax is identified on current examination. The lung nur are relatively clear and without discrete focal consolidation or effusion. The mediastinum and cardiac silhouette are normal. The skeletal structures are intact. IMPRESSION: 1. No obvious definite residual left apical pneumothorax. 2. No new acute process appreciated. MTDD
--- NOTE | 2020-05-25 14:22 | REP ---
CHEST X-RAY: 2-VIEWS HISTORY: Pneumothorax. COMPARISON: 05/19/2020. FINDINGS: Monitoring electrodes overlie the chest. There is an epidural catheter visible. Two left chest tubes remain in place. There is no discernable pneumothorax on todays radiograph. There is some extrathoracic soft tissue gas again noted. No new infiltrate is seen. Pleural angles are sharp. Cardiomediastinal silhouette is unremarkable. There is some parenchymal opacity surrounding a suture line in the left lung apex consistent with postoperative change. IMPRESSION: No new infiltrate. MTDD
--- NOTE | 2020-05-25 14:25 | REP ---
CHEST X-RAY CLINICAL: Follow-up pneumothorax. TECHNIQUE: PA and lateral. COMPARISON: 05/20/2020. FINDINGS: Two left-sided chest tubes are again identified in stable position. No obvious residual pneumothorax identified on current examination. Minimal left basilar atelectasis and possible small amount of left basilar pleural fluid suggested. Right hemithorax is clear. Mediastinum and cardiac silhouette are normal. Skeletal structures are grossly intact. Small amounts of subcutaneous emphysema along the left lateral chest wall similar to prior exam. IMPRESSION: 1. No obvious residual pneumothorax appreciated. 2. Trace left basilar pleural fluid cannot be excluded. 3. No new acute process identified. MTDD
--- NOTE | 2020-05-25 14:30 | REP ---
CHEST X-RAY CLINICAL: Follow-up pneumothorax. TECHNIQUE: PA and lateral. COMPARISON: 05/21/2020. FINDINGS: Two left-sided chest tubes in stable position. No obvious residual pneumothorax is appreciated. The lung nur demonstrate stable subtle lower lobe opacities suggesting trace atelectasis. No discrete focal consolidation, obvious effusion, or pneumothorax. Mediastinal and cardiac silhouette stable. Skeletal structures are intact. IMPRESSION: Relatively stable examination. Trace basilar atelectasis cannot be excluded. No obvious residual pneumothorax. MTDD
--- NOTE | 2020-05-25 14:32 | REP ---
CHEST X-RAY CLINICAL: Pneumothorax. TECHNIQUE: PA and lateral. COMPARISON: 05/22/2020. FINDINGS: Mediastinum and cardiac silhouette are normal. Lung nur clear. No consolidation, effusion, or obvious residual pneumothorax. Skeletal structures are intact. IMPRESSION: Normal chest x-ray. No acute cardiopulmonary process. No significant residual pneumothorax identified. MTDD
--- NOTE | 2020-06-06 10:14 | RO ---
DATE OF OPERATION: 05/18/2020 PREPROCEDURE DIAGNOSES: 1. Recurrent pneumothorax. 2. Distal emphysematous bleb disease. POSTPROCEDURE DIAGNOSIS: PROCEDURES: Left upper lobe wedge resection and talc pleurodesis along with bronchoscopy and five level rib block. SURGEON: Grabiel Cortez MD WALLPAPER HANGER: ANESTHESIA: FINDINGS: Numerous blebs were found at the top of the apex of the left upper lobe. These were clearly visualized and pictures were taken. The blebs were stapled off with a generous piece in the apical segment. A talc was uniformly insufflated throughout the chest. Bronchoscopy revealed a normal tracheobronchial tree with scant secretions and no endobronchial lesions. DESCRIPTION OF PROCEDURE: Under satisfactory single lumen endotracheal intubation, the bronchoscope was placed into the airway. Each segment and subsegment was thoroughly inspected and there was found to be no endobronchial lesions. There were gratifyingly scant secretions. The patient then underwent double intubation and positioned by bronchoscopy. Patient was then turned into the right lateral decubitus position and sterilely prepped and draped in the usual fashion. The patient had already been marked and an incision at approximately the sixth intercostal space was made and a tunnel was created without difficulty with a 5-mm port. The scope was inserted and another posterolateral port at the posterior axillary line was placed. This was also a 5-mm port. Lung was ceased with a grasper and thoroughly inspected and numerous distal emphysematous blebs were seen. Pictures were taken. Another incision in the anterior axillary line was made and the 5-mm port was exchanged posteriorly for a 12-mm port and placed in the anterior incision. The lung was then properly positioned and ceased again with graspers and a generous wedge resection of the apical segment of the upper lobe was undertaken. This required three firings. The specimen was placed in an Endo Catch bag and removed from the chest intact. This was sent for pathologic examination. Talc was then uniformly insufflated into the chest. Again pictures were taken. Two chest tubes were placed, one posteriorly and one anteriorly, both #24 gauge. These were secured to the chest wall, and the remaining posterior incision was closed with running 0-Vicryl suture for the extrathoracic muscles, running 3-0 Vicryl suture for the subcutaneous tissue, and running 4-0 Monocryl subcuticular suture for the skin. Prior to inflating the lung, a five level rib block consisting of Exparel was injected. Patient tolerated the procedure well and left the operating room in satisfactory condition to the recovery room. [place]
--- NOTE | 2020-06-08 09:55 | ECGEPIP ---
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
--- NOTE | 2020-06-16 11:07 | DSES ---
DATE OF ADMISSION: 05/13/2020 DATE OF DISCHARGE: 05/23/2020 DISCHARGE DIAGNOSES: * Spontaneous pneumothorax left side. 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 * Postoperative day number five status post talc pleurodesis and left upper lobe wedge resection. HISTORY OF PRESENT ILLNESS: It should be noted that I am dictating from memory as the history and physical has not been posted to the electronic medical record. The patient is a 30-year-old white male who noted intense left-sided chest pain. He is status post a right pneumothorax about four years ago for which a talc pleurodesis and wedge resection was undertaken at an outside hospital in [place], [place]. He is in the . He was found to have a complete pneumothorax for which a chest tube was placed anteriorly. He continued to have an alveolar pleural fistula resulting in an air leak and he was taken to the operating room where he underwent a wedge resection of the left upper lobe along with a talc pleurodesis. His postoperative course was notable for increased postoperative pain even though he did have an epidural. 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 That helped him. Chest tubes were removed on the fourth postoperative day after minimal drainage and with cessation of the air leak. DISCHARGE MEDICATIONS: He is being discharged home today on Percocet 5/325 q.4h p.r.n. pain. He will return to see me in one week for a postoperative followup with a chest x-ray. I have asked him not to drive. He is to be placed on no duty for at least one or two weeks and then light duty for six weeks. After he heals from his procedure, he should be completely functional and be ready to resume all of his duties and his career. His discharge white count is 5.1 with a hemoglobin and hematocrit of 11.2 and 34.5 and a platelet count of 237. His electrolytes were normal with a BUN and creatinine of 16 and 0.76. Chest x-ray shows his lungs fully expanded in the chest wall with sharp costophrenic angles. MTDD
--- NOTE | 2020-06-17 11:40 | REP ---
CHEST X-RAY: 2-VIEWS HISTORY: Follow up pneumothorax. TECHNIQUE: PA and lateral COMPARISON: 05/16/20 FINDINGS: Chest tube extending via the anterior left apex in stable position and the underlying left apical pneumoperitoneum is decreased from prior examination. Small amount of associated subcutaneous emphysema along the left lateral chest wall is again noted. The bilateral lung nur are otherwise well-aerated and without further acute consolidation or effusion. The mediastinum and cardiac silhouette are normal. The skeletal structures are intact. IMPRESSION: 1. Chest tube in stable position. 2. Decreased left apical pneumothorax. 3. No new acute process MTDD
--- NOTE | 2020-06-17 11:41 | REP ---
CHEST X-RAY: 2-VIEWS TECHNIQUE: PA and lateral COMPARISON: 05/15/20 HISTORY: Follow up pneumothorax. FINDINGS: A small left apical pneumothorax is again noted and stable. Left chest tube in stable position. The remainder of the lung nur are well-aerated and clear. Mediastinum and cardiac silhouette are normal. Skeletal structures are intact. Small amount of subcutaneous emphysema along the left lateral chest wall again noted. IMPRESSION: Small, stable left apical pneumothorax. MTDD
--- NOTE | 2020-06-17 11:42 | REP ---
CHEST X-RAY: TWO-VIEWS HISTORY: Pneumothorax. FINDINGS: The lungs are symmetrically aerated and clear. There is a left chest tube in place in the left lung apex. There is a small left apical pneumothorax air collection. This measures approximately 14 mm in thickness. It is slightly increased from the film done 05/14/2020. The pleural angles are sharp. Cardiomediastinal silhouette is unremarkable. Monitoring electrodes are seen. IMPRESSION: Left chest tube in place with small left apical pneumothorax. MTDD
--- NOTE | 2020-06-27 11:46 | HPE ---
DATE OF ADMISSION: 05/13/2020 ATTENDING PHYSICIAN: Dr. 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 He states after these symptoms he called for help and was transported via emergency medical services (EMS) to the emergency room, where he was found to have a left-sided pneumothorax. He has had a pneumothorax at the age of 26 in the past on the right side, requiring initially a chest tube and then eventually talc pleurodesis. REVIEW OF SYSTEMS: CONSTITUTIONAL: Patient denies any fevers, chills, night sweats, or recent unexpected weight change. HEENT: Denies headaches, dizziness, vision changes, difficulty seeing, difficulty hearing, ear pain, mouth or throat pain. Denies any neck swelling. CARDIOVASCULAR: Does admit to chest pain as per history of present illness (HPI). Denies any palpitations. Denies any history of heart attacks in the past. LUNGS: Denies any wheezing, coughing, hemoptysis. Admits to shortness of breath as per HPI. GASTROINTESTINAL: Denies any nausea, vomiting, abdominal pain, constipation, diarrhea, melena, hematochezia. GENITOURINARY: Denies any dysuria, hematuria, history of kidney stones. MUSCULOSKELETAL: Denies any muscle aches or pains, joint aches or pains. SKIN: Denies any rashes or lesions. NEUROLOGIC: Denies any history of strokes, numbness or tingling in his arms or his legs. PSYCHIATRIC: Denies suicidal ideation (SI), homicidal ideation (HI), auditory or visual hallucinations (AVH). PAST MEDICAL HISTORY: Significant for right-sided pneumothorax. PAST SURGICAL HISTORY: Significant for right-sided tube thoracostomy and right- sided talc pleurodesis. FAMILY HISTORY: No contributory family history. No family history of recurrent pneumothoraces. SOCIAL HISTORY: Patient is a never smoker. Patient is a former drinker who quit drinking at the age of 28 and is currently attending Alcoholic's Anonymous. Has not had a drink since the age of 28. Denies any illicit drug use. 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 No history of foreign travel ever. No exposures that he can think of. ALLERGIES: No known drug allergies. OBJECTIVE: VITAL SIGNS: Temperature of 98.0 degrees Fahrenheit, pulse 84 and sinus rhythm on the monitor. Blood pressure is 150/91, respirations rate of 22, saturating 99% on room air without the use of accessory muscles of respiration. GENERAL: Patient is a hurt-appearing male, sitting with legs up and breathing cautiously upright in bed in no acute distress. HEENT: Head is normocephalic, atraumatic. Extraocular movement intact (EOMI). No scleral icterus. Nares patent. Mucous membranes moist. No pharyngeal erythema or edema. NECK: Trachea midline. Thyroid is mobile without enlargement or tenderness. No cervical or supraclavicular lymphadenopathy. CHEST: No signs of chest trauma. CARDIOVASCULAR: Regular rate and rhythm. Normal S1 and S2. No murmurs, gallops, or rubs. RESPIRATORY: Clear to auscultation on the right. No breath sounds on the left. No wheezes, crackles, or rhonchi present. ABDOMEN: Bowel sounds present. Abdomen is soft, nontender, nondistended. No hepatosplenomegaly. No masses or ecchymosis. NEUROLOGIC: Cranial nerves III-XII are intact. Strength is +5/5 in both upper and lower extremities. EXTREMITIES: No swelling or edema in bilateral upper and lower extremities. PSYCHIATRIC: Mood is "okay" with congruent affect. LABORATORIES/STUDIES: White blood cell count of 7, hemoglobin 13.1, hematocrit 40.3, platelet count of 235. Sodium 138, potassium 4.8, chloride 106, bicarbonate 32, BUN 13, creatinine 0.84, glucose 100, calcium 9.7. Total bilirubin 0.5, AST 68, ALT 58, alkaline phosphatase 64. Total CK 3255. Troponin less than 0.02. Total protein 7.9, albumin 4.3. D-dimer is less than 270. IMAGING: Portable chest x-ray showing large left-sided pneumothorax with mild shift of the mediastinum to the right. ASSESSMENT/PLAN: 1. Left-sided pneumothorax. Plan for left-sided anterior tube thoracostomy in the midclavicular line. We will set chest tube to suction. See procedure note for further details. Otherwise we will use Toradol for pain control every 6 hours with oxycodone and hydrocodone as adjunctives for pain management, daily complete blood count (CBC), basic metabolic profile (BMP), and 2-view chest x- ray ordered as well as incentive spirometry and additional lung expansion therapy. Once patient is able to tolerate regular diet, okay to set IV fluids to heparin lock. Will monitor on telemetry and report any changes to Dr. Loya overnight. 2. Elevated creatine kinase, likely secondary to the patient's left-sided pneumothorax. Will continue to monitor but should go away on its own. Will recheck CK level tomorrow morning. MTDD
--- NOTE | 2020-06-30 11:16 | RO ---
DATE OF OPERATION: 05/13/2020 PREOPERATIVE DIAGNOSIS: Left complete pneumothorax. POSTOPERATIVE DIAGNOSIS: Left complete pneumothorax. PROCEDURE: SURGEON: Grabiel Cortez MD CARE GIVER: Ilya Loya DO PROCEDURE: Under satisfactory moderate sedation achieved with 6 mg of Versed, the patient was prepped and draped in the usual sterile fashion. The first intercostal space over the 2nd rib was infiltrated with 1% lidocaine into the pleural. Incision was made and a tunnel was created in the chest without difficulty. A #20 chest tube was placed to about 10 cm. A gush of air was noted as we entered the chest. The chest tube was sutured to the chest wall with #2 Tevde[place] suture and connected to a Pleur-Evac. The patient tolerated the procedure well and chest x-ray is pending. [facility]
--- NOTE | 2020-07-01 14:48 | IPN ---
DATE: 05/13/2020 Ilya Loya DO performing dictation in conjunction with co-signer Grabiel Cortez MD SUBJECTIVE: No acute events overnight. The patient states he continues to have discomfort and is afraid to take a deep breath and because of said discomfort. He has received his scheduled Toradol and 2 Percocet tablets recently and still does not feel like there is too much of a difference. He otherwise denies any fevers, chills, shortness of breath, abdominal pain, nausea, vomiting, swelling of his extremities. He feels like he has had a difficult time eating anything because of the uncomfortability. He does admit to passing flatus. And, has been consuming liquids. OBJECTIVE: I's and O's: Intake 600 mL oral; 600 mL IV normal saline includes I's and O's in the last 24 hours. Urine output: 600 mL. Chest tube output: 10 mL with positive air leak. VITAL SIGNS:: Temperature 97 degrees Fahrenheit, afebrile overnight. Pulse 60, sinus rhythm on monitor. Respiratory rate of 18. Blood pressure 118/75. Satting 97% on room air using no accessory muscles of respiration. GENERAL: The patient is uncomfortable appearing sitting with knees upright, not moving very much in bed but is otherwise in no acute distress. HEENT: Head is normocephalic and atraumatic. EOMI. No scleral icterus. Mucous membranes moist. No pharyngeal erythema or edema. CHEST: Chest tube remains in place on left-sided chest wall. CARDIOVASCULAR: Regular rate and rhythm, normal S1 and S2, no murmurs, gallops or rubs. RESPIRATORY: Clear to auscultation bilaterally with no wheezes, crackles or rhonchi. No dullness to percussion. ABDOMEN: Soft, nontender, nondistended. Bowel sounds present. EXTREMITIES: No swelling or edema. LABS/STUDIES: White blood cell count is 7.3, hemoglobin 12. 3, hematocrit 38.4, platelet count of 204. Sodium of 141, potassium 4.2, chloride 109, bicarb 29, BUN of 17, creatinine 0.73, glucose of 98, calcium of 8.4. Chest x-ray showing left-sided chest tube in place with some subcutaneous air on the left side of the chest wall and a small residual pneumothorax at the apices of the left lung. Chest CT ordered this morning shows that the placement of the chest tube is just parallel to the mediastinal borders but is not eroding into it in any way. There is subcutaneous emphysema present on the left side and extending into the neck on the left side specifically and there are some signs of a small pneumothorax on the left side at the apices of the lung. ASSESSMENT/PLAN: Left-sided pneumothorax, status post chest tube placement on May 14. Because of the positioning of the chest tube, we will withdrawn it about 3-4 cm today to allow for the pneumothorax to resolve. After doing that, if there is an air leak we will wait 24 hours to see if the air leak continues and if there is a continued air leak, we will need to consider possible talc pleurodesis for correction of this abnormality. Otherwise, we will continue to control his pain, now that the chest tube has been replaced, with Percocet every 4 hours as well as scheduled Toradol and we will continue to monitor for further signs of discomfort. [place]
--- NOTE | 2020-07-01 14:50 | IPN ---
DATE: 05/15/2020 This is now the 2nd hospital day for Mr. Neely after his large spontaneous left pneumothorax. Today, he is rather despondent although I am not sure why. The nursing staff saw an air leak today although I do not see one today. I am sure that it is intermittent. His pain is being well controlled with Toradol and oral analgesics. His vital signs show a maximum temperature (T-max) of 97.5 with a heart rate that ranges between 61 and 50 in sinus rhythm, respiratory rate of 18-20 without the use of accessory muscles, he is 97% saturated on room air. Blood pressure is ranging between 105/55 to 117/57. His intake and output over the past 24 hours has been recorded as 1350 in and 420 out for a positive of 930 mL. He has put out 20 mL at the chest tube. There is no air leak on my observations today, but as noted above the nurses saw an air leak this morning. His weight today is 77.3 kg compared to 81.9 kg yesterday. On physical examination, his lungs show equal breath sounds on either side. There are no wheezes, rhonchi, or rales. Percussion is full to the diaphragm, there is subcutaneous emphysema. Cardiac exam is without murmurs, clicks, gallops, or rubs, I cannot feel his point of maximum impulse (PMI), S1, S2 are normal. Abdomen is soft, nontender, bowel sounds are positive, there is no hepatomegaly, no costovertebral angle (CVA) tenderness. Extremities show no pretibial edema, no calf tenderness, no joint pain or swelling of the upper extremities. Skin is warm, dry, and well-perfused without cyanosis or mottling including of the nail beds and knees. Neck is supple, there is no jugular venous distention, no subcutaneous emphysema, trachea is midline. Mouth shows his mucous membranes to be pink and moist without thrush. Eyes show his pupils to be equal and reactive, extraocular muscles intact, sclerae nonicteric. Neurological shows II-XII intact, normal gross motor, gross sensation intact, gait is not tested. Psychiatric shows him to be awake, alert, oriented times three with appropriate mood and affect and conversational. His white count today is 6.2 with a hemoglobin and hematocrit of 12.1 and 37.8, unchanged from yesterday, with a platelet count of 173. Chemistry showed normal electrolytes with a BUN and creatinine of 12 and 0.72, a glucose of 92, and a calcium of 8.8. He continues on Toradol. His chest x-ray today shows an apical air space of about 1 cm. On the lateral film the tube is definitely in the chest. There is minimal subcutaneous emphysema no doubt secondary to pushing air out from his pneumothorax during lung expansion. Costophrenic angles are sharp. There are no posterior infiltrates on the lateral film. IMPRESSION: 1. Spontaneous pneumothorax. 2. Intermittent alveolar pleural fistula. 3. Status post spontaneous pneumothorax on the right side 4 years ago status post talc pleurodesis in [place], [place]. PLAN AND DISCUSSION: I will leave his chest tube connected to suction today. If the air leak does not stop by Saturday, I will take him to the operating room most likely on Saturday to undertake a talc pleurodesis and wedge resection. His chest CT done yesterday does not convincingly show overwhelming blood disease although there looks to be some scarring at the cupola. It suspect there are hidden blebs in there. There are no emphysematous changes. [place]
--- NOTE | 2020-07-01 14:54 | IPN ---
DATE: 05/16/2020 Mr. Neely still has an air leak from his chest tube. We therefore discussed taking him to the operating room on Saturday for talc pleurodesis and wedge resection. His vital signs show a maximum temperature (T-max) of 97.9 with a heart rate that ranges between 50 and 72 in a sinus rhythm and a respiratory rate of 18-20 without the use of accessory muscles. Blood pressure is ranging between 113/60 to 137/76. His intake and output over the past 24 hours has been recorded as 1020 in and 11 mL out for a positive of 109 mL. He has put 11 mL out of the chest tube. Obviously, no urine has been collected. He has seven voids. The intake and output are off. PHYSICAL EXAMINATION: His lungs show normal fascicular sounds on either side. Percussion is full to the diaphragm. Cardiac exam without murmurs, clicks, gallops, or rubs, I cannot feel his point of maximum impulse (PMI), S1 and S2 are normal. Abdomen is soft and nontender, bowel sounds are positive, there is no hepatomegaly, no costovertebral angle (CVA) tenderness. Extremities show no pretibial edema, no calf tenderness, no differential swelling of the upper extremities. Skin is warm, dry, and perfused without cyanosis or mottling including that of the nail beds and knees. Neck is supple, there is no jugular venous distension, no subcutaneous emphysema, trachea is midline. Mouth shows his mucous membranes to be pink and moist, lips and commissures with no thrush. Eyes show his pupils to be equal and reactive, extraocular muscles are intact, sclerae not icteric. Neurologic shows II-XII intact, normal gross motor, along with gross sensation intact, gait is not tested. Psychiatric shows him to be awake and alert and oriented times three, with appropriate mood and affect and conversational. His white count today is 6.1 with a hemoglobin and hematocrit of 12.0 and 37.8. Platelet count is 182. Chemistries today show normal electrolytes with a BUN and creatinine of 12 and 0.77. Glucose is 85 with a calcium of 8.6. Chest x-ray shows his lung fully expanded to the chest wall but there is a 1 cm air space at the cupula in the right lung. There are no infiltrates and costophrenic angles are sharp. IMPRESSION: 1. Spontaneous pneumothorax. 2. Alveolar pleural fistula continuing. PLAN AND DISCUSSION: As noted above, we will plan to take him to the operating room on Saturday unless his air leak stops tomorrow. I have a feeling that it is not going to stop. I have counseled him with regard to the operation including risks and benefits and he is willing to proceed. [place]
--- NOTE | 2020-07-01 14:55 | IPN ---
DATE: 05/17/2020 Mr. Neely still has his air leak that is worse with coughing. His pain is being well controlled at the chest tube insertion site. We are going to take him to the operating room tomorrow and undertake a talc pleurodesis and resection of blebs with what will probably need to be multiple wedge resections. His vital signs show a maximum temperature (T-max) of 97.8 with a heart rate that ranges between 58 and 66 in a sinus rhythm, respiratory rate 16-20 without the use of accessory muscles, who is 97-99% saturated on room air, and whose blood pressure ranges from 156/82 to 116/62. His intake and output shows 1200 in and 633 out for a positivity of 537 mL. 650 mL is recorded as urine output and 13 mL in the chest tube. There is a small air leak. His weight today is 79.2 kg compared to 77.3 kg yesterday. PHYSICAL EXAMINATION: His lungs show normal fascicular sounds without wheezes, rhonchi, or rales. Percussion was full to the diaphragm. Cardiac exam is without murmurs, clicks, gallops, or rubs. I cannot feel his point of maximum impulse (PMI). S1 and S2 are normal. Abdomen is soft, nontender, bowel sounds are positive, there is no hepatomegaly, no costovertebral angle (CVA) tenderness. Extremities show no pretibial edema, no calf tenderness, no differential swelling of the upper extremities. Skin is warm, dry, and perfused without cyanosis or mottling including that of the nail beds and knees. Neck is supple, there is no jugular venous distension, no subcutaneous emphysema, trachea is midline. Mouth show his mucous membranes to be pink and moist, lips and commissures, there is no thrush. Eyes show his pupils to be equal and reactive, extraocular muscles intact, sclerae nonicteric. Neurologic shows II- XII gait. Normal gross motor, gross sensation intact, gait is not tested. Psychiatric shows him to be awake, alert, oriented times three with appropriate mood and affect and conversational. His white count today is 5.4 with a hemoglobin and hematocrit of 11.4 and 35.6. Platelet count is 179 and stable. He has a normal differential. His chemistries today show normal electrolytes with a BUN and creatinine of 9 and 0.79. He remains on Toradol. Glucose is 96 with a calcium of 8.8. His chest x-ray shows his lungs fully expanded to the chest wall. I no longer see the air space at the cupola on the left side. Costophrenic angles are sharp and there are no infiltrates on the posterolateral film. IMPRESSION: 1. Spontaneous pneumothorax. 2. Continued alveolar pleural fistula. PLAN AND DISCUSSION: We will take him to the operating room tomorrow and undertake a talc pleurodesis along with multiple wedge resection for bleb disease. Patient has been counseled and understands the risks and benefits and is willing to proceed. [place]
--- NOTE | 2020-07-01 14:57 | IPN ---
DATE: 05/19/2020 This is now the first postoperative day for Mr. Neely. He is stable night of surgery. He complains of increased pruritus, and therefore the fentanyl is going to be removed from the epidural. He has pain with taking a deep breath, which is more generalized, most likely secondary to the chemical pleurisy from the talc. His vital signs show a maximal temperature of 97.8 with a heart rate that ranges between 60-59 in a sinus rhythm, respiratory rate of 16-24 without the use of accessory muscles. He was 98% saturated on room air. His blood pressure is ranging between 120/56 to 102/54. His intake and output the past 24 hours is recorded as 4658 in and 3149 out, for a positivity of 1500 mL. He has put out 139 mL from the chest tube, and there is no air leak. Weight today is 80.5 kg, 79.2 kg yesterday. PHYSICAL EXAMINATION: He has equal breath sounds on either side. I do not detect a pleural friction rub as of yet. Percussion note is full to the diaphragm. Cardiac exam is without murmurs, clicks, gallops, or rubs. I cannot feel his point of maximal impulse (PMI). S1 and S2 are normal. Abdomen is slightly distended and tympanitic. Bowel sounds are absent. He has not yet passed flatus. There is no hepatomegaly. No costovertebral angle (CVA) tenderness. Extremities show no pretibial edema, no calf tenderness. No differential swelling of the upper extremities. Skin is warm, dry, and perfused without cyanosis or mottling, including nail beds and knees. Neck is supple. There is no jugular venous distention. No subcutaneous emphysema. Trachea is midline. Mouth shows mucous membranes to be pink and moist. Lips, tongue without lesions or thrush. Eyes show pupils equal and reactive. Extraocular movements intact. Sclerae anicteric. Neurologic shows II-XII intact. Normal gross motor, gross sensation intact. Gait is not tested. Psychiatric shows him to be awake, alert, oriented times three with appropriate mood and affect and conversational. His white count today is 10.4 with a hemoglobin and hematocrit of 11.8 and 35.9 with a platelet count 195. Differential shows 32% neutrophils, 17% lymphocytes, 8% monocytes. There are no immature forms or toxic granulations. His electrolytes are normal with BUN and creatinine of 10 and 0.77, a glucose of 94, and a calcium of 8.6. His chest x-ray today shows the lungs fully expanded to the chest wall. There is some subcutaneous emphysema on the left lateral chest. This looks to be less than it was yesterday just after surgery. Chest tube is showing in good place. Costophrenic angles are sharp. I see no infiltrates. IMPRESSION: 1. Recurrent pneumothorax on the left. 2. Alveolar pleural fistula on the left, hopefully now resolved. 3. Postoperative day #1 status post multiple wedge resections of apex of the left upper lobe and a talc pleurodesis. PLAN AND DISCUSSION: He is doing fairly well. We will discontinue his arterial line and transfer him to the progressive care unit (PCU). [place]
== END 2020-05-23 14:40 | disposition home or self-care (01) | DRG 163 ==
LOC: M ED 18:01 → EDBD 18:01 → M PCU 19:00 → M ICU 05-18 15:22 → M PCU 05-19 16:50
PROVIDERS: ADMIT Thoracic Surgery (Cardiothoracic Vascular Surgery); ATTEND Thoracic Surgery (Cardiothoracic Vascular Surgery)
PROC: 0W9B00Z Drainage of Left Pleural Cavity with Drainage Device, Open Approach (ICD-10-PCS; 2020-05-13)
PROC: 0BJ08ZZ Inspection of Tracheobronchial Tree, Via Natural or Artificial Opening Endoscopic (ICD-10-PCS; 2020-05-18)
PROC: 0BBG4ZZ Excision of Left Upper Lung Lobe, Percutaneous Endoscopic Approach (ICD-10-PCS; principal; 2020-05-18 08:30)
DX: J93.83 Other pneumothorax (principal); J86.0 Pyothorax with fistula; J95.812 Postprocedural air leak; J43.9 Emphysema, unspecified

== ENCOUNTER → 2020-06-01 | Outpatient (CLI) | payer OTHER ==
[~2020-06-01] MED LIST changes: -KETOROLAC 30 MG/ML 1ML VIAL IV SCH; +PERCOCET PO
--- NOTE | 2020-06-20 11:21 | REP ---
CHEST X-RAY CLINICAL: Follow-up pneumothorax. TECHNIQUE: PA and lateral. COMPARISON: 05/23/2020. FINDINGS: Mediastinum and cardiac silhouette are normal. Lung nur are clear/stable. Subtle opacity in the medial left apex is unchanged and suggests prior surgical intervention. No consolidation, effusion, or pneumothorax. Skeletal structures are intact. IMPRESSION: Stable chest x-ray. No acute cardiopulmonary process or pneumothorax. MTDD
== END ==
LOC: M RAD 11:30
PROVIDERS: ATTEND Thoracic Surgery (Cardiothoracic Vascular Surgery)
DX: J93.83 Other pneumothorax (principal)

== ENCOUNTER → 2020-07-25 | Outpatient (CLI) | payer OTHER ==
--- NOTE | 2020-07-25 09:31 | REPPI ---
INDICATION: ENCNTR FOR SURGICAL AFTCR FOLLOWING SURGERY TENSION PNEUMOTH. COMPARISON: 06/01/2020, 05/23/2020 TECHNIQUE: Two views FINDINGS: The lung nur are well inflated. In the medial lung apex bilaterally are staple lines. I do not see new or acute pneumothorax, pleural effusion or acute infiltrate. There are no parenchymal lung masses. Some minor apical pleural thickening on both sides. Is no pulmonary nodule or mass heart is not enlarged. The aorta and airway are intact. Bony thorax shows no acute compression deformity or focal lesion. IMPRESSION: 1. Postoperative changes with long staple lines in both apices the no evidence of an acute pneumothorax. Minor apical pleural thickening 2. Lung nur are otherwise clear and the heart and mediastinum unremarkable. <Electronically signed by Marlon Merino > 07/25/20 [id number]
== END ==
LOC: M PLAIMG 08:18
PROVIDERS: ATTEND Thoracic Surgery (Cardiothoracic Vascular Surgery)
DX: Z48.813 Encounter for surgical aftercare following surgery on the respiratory system (principal); J93.0 Spontaneous tension pneumothorax

== ENCOUNTER → 2020-08-31 | Outpatient (CLI) | payer OTHER ==
--- NOTE | 2020-08-31 08:24 | PFTRPT ---
Height: 68.00 Inches Weight: 175.00 Lbs BSA: 1.93 Diagnosis: SOB DATE: 08/31/2020 ORDERING PHYSICIAN: Sincere Koehler Pre and post bronchodilator studies of excellent technical quality. Forced vital capacity is normal. FEV1 is in proportion. Obstructive index is therefore normal. Expiratory limit of the flow-volume loop is normal. No significant bronchodilator response is identified. Total lung capacity is normal. Residual volume is in proportion. Diffusing capacity is normal. No hemoglobin available for correction. Airway resistance and conductance are normal. IMPRESSION: Normal study. MTDD
== END ==
LOC: M CARPUL 07:47
PROVIDERS: ATTEND Physician Assistant
DX: R06.02 Shortness of breath (principal)

== ENCOUNTER → 2021-03-07 | Outpatient (REF) ==
--- NOTE | 2021-03-08 02:15 | REPPI ---
INDICATION: FRACTURE,SOB COMPARISON: 07/25/2020 TECHNIQUE: PA and lateral. FINDINGS: The mediastinum and cardiac silhouette are normal. The lung nur are clear and without acute consolidation, effusion, or pneumothorax. The skeletal structures are intact and normal. IMPRESSION: No acute cardiopulmonary process. <Electronically signed by Jaime Márquez > 03/08/21 [id number]
--- NOTE | 2021-03-08 03:11 | REPPI ---
INDICATION: FRACTURE,SOB COMPARISON: None. TECHNIQUE: AP and lateral views right wrist. FINDINGS: The osseous structures and joint spaces are intact and normal. There is no evidence for acute fracture or dislocation. Surrounding soft tissues are unremarkable. No subcutaneous emphysema or radiodense foreign body. IMPRESSION: . No acute fracture or dislocation. <Electronically signed by Jaime Márquez > 03/08/21 [id number]
== END ==
LOC: M PLAIMG 14:48
PROVIDERS: ATTEND Internal Medicine
DX: Z00.00 Encounter for general adult medical examination without abnormal findings (principal)

== ENCOUNTER 2021-07-03 16:32 | Emergency (ER) | payer OTHER ==
[~2021-07-03] VITALS: Ht 172.7 cm; Wt 80.9 kg
--- NOTE | 2021-07-03 16:58 | REP ---
INDICATION: left chest pain, possible pneumo COMPARISON: 03/07/2021 TECHNIQUE: PA and lateral. FINDINGS: The mediastinum and cardiac silhouette are normal. The lung nur are clear and without acute consolidation, effusion, or pneumothorax. The skeletal structures are intact and normal. IMPRESSION: No acute cardiopulmonary process. <Electronically signed by Jaime Márquez > 07/03/21 [id number]
[2021-07-03] MEDS ORDERED: KETOROLAC 30 MG/ML 1ML VIAL IV ONE (17:55)
[2021-07-03 18:35] LABS: HEMOGLOBIN 14.9 g/dl (13.5-17.5); MEAN CORPUSCULAR HGB CONC 33.9 g/dl (32.0-36.5); MEAN CORPUSCULAR VOLUME 94.4 fl (80.0-96.0); PLATELET COUNT, AUTOMATED 251 10^3/uL (150-450); RED BLOOD COUNT 4.66 10^6/uL (4.30-6.10); WHITE BLOOD COUNT 7.8 10^3/uL (4.0-10.0)
[2021-07-03 18:50] LABS: ALBUMIN 4.1 GM/DL (3.2-5.2); ALT/SGPT 36 U/L (12-78); BILIRUBIN,TOTAL 0.8 MG/DL (0.2-1.0); BLOOD UREA NITROGEN 8 MG/DL (7-18); CALCIUM LEVEL 9.4 MG/DL (8.5-10.1); CARBON DIOXIDE LEVEL 26 MEQ/L (21-32); CHLORIDE LEVEL 106 MEQ/L (98-107); CPK CREATINE PHOSPHOKINASE 177 U/L (39-308); GLOMERULAR FILTRATION RATE > 60.0 (>60); GLUCOSE, FASTING 81 MG/DL (70-100); LIPASE 63 U/L (73-393); MB/CK RELATIVE INDEX 0.56 (< OR =4); POTASSIUM SERUM 3.8 MEQ/L (3.5-5.1); SODIUM LEVEL 139 MEQ/L (136-145); TOTAL PROTEIN 7.7 GM/DL (6.4-8.2); TROPONIN I < 0.02 NG/ML (< 0.10)
[2021-07-03] MEDS ORDERED: ISOVUE-370 76% 100ML VIAL As Ordered ONE (19:02)
--- NOTE | 2021-07-03 20:28 | REPVR ---
PROCEDURE INFORMATION: Exam: CTA Chest With Contrast Exam date and time: 07/03/2021 7:44 PM Age: 31 years old Clinical indication: Pain; Chest pressure; Additional info: Chest pain TECHNIQUE: Imaging protocol: Computed tomographic angiography of the chest with contrast. 3D rendering (Not supervised by radiologist): MIP and/or 3D reconstructed images were created by the technologist. Radiation optimization: All CT scans at this facility use at least one of these dose optimization techniques: automated exposure control; mA and/or kV adjustment per patient size (includes targeted exams where dose is matched to clinical indication); or iterative reconstruction. Contrast material: ISOVUE 370; Contrast volume: 100 ml; Contrast route: INTRAVENOUS (IV); COMPARISON: CT Chest without contrast 05/14/2020 8:40 AM FINDINGS: Pulmonary arteries: No pulmonary emboli. Aorta: No aortic aneurysm. No aortic dissection. Lungs: There is a surgical suture in the right upper lung field. There is some peripheral blebs in the right lung apex. There are postop changes in the left lung apex is well. There is a 4 mm peripheral lingular granuloma Pleural spaces: No pneumothorax. No pleural effusion. Heart: No cardiomegaly. No pericardial effusion. Lymph nodes: No enlarged lymph nodes. Bones/joints: No acute fracture. Soft tissues: Unremarkable. IMPRESSION: 1. No pulmonary embolism. 2. Postoperative changes. Electronically signed by: Robert Will On 07/03/2021 20:28:00 PM
[2021-07-03 21:32] VITALS: BP 146/99
--- NOTE | 2021-07-04 21:28 | ECGEPIP ---
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
== END 2021-07-03 21:34 | disposition home or self-care (01) ==
LOC: M ED 16:32
DX: M94.0 Chondrocostal junction syndrome [Tietze] (principal); F41.9 Anxiety disorder, unspecified
CPT/HCPCS: 71046; 71275; 80053; 82550; 82553; 83690; 84484; 85027; 93005; 93041; 94760; 96374; 99285; J1885; Q9967